=== PATIENT | female | born 1980 | race Caucasian/White ===

== ENCOUNTER 2017-04-27 22:57 | Emergency (ER) | payer BC, OTHER ==
--- NOTE | 2017-04-28 00:50 | ER Document Report ---
ED Medical Screen (RME) - General Chief Complaint: Vaginal Bleeding Stated Complaint: VAGINAL BLEEDING Time Seen by Provider: 04/28/17 00:42 Mode of Arrival: Ambulatory Information source: Patient Notes: -year-old female presents to ED for vaginal bleeding 3 weeks. She states she had a first until 3 weeks ago when she started bleeding again she states she went to [facility] Dr. Treadwell on Friday she said by then her bleeding had slowed down from and Dr. Treadwell put her on Tylenol with codeine and Benadryl. She states that on Friday the bleeding became much worse and then today around 2 PM she started with large clots and then around 10:00 tonight she started bleeding very heavily went to 5 pads between [id number] tonight. He states she has cramping in her abdomen and pelvis. Her ovaries selected twisted she has pelvic and back pain. I have greeted and performed a rapid initial assessment of this patient. A comprehensive ED assessment and evaluation of the patient, analysis of test results and completion of medical decision making process will be conducted by an additional ED providers. TRAVEL OUTSIDE OF THE [place] IN LAST 30 DAYS: No - Related Data Allergies/Adverse Reactions: No Known Allergies Allergy (Verified 04/27/17 23:45) Past Medical History Endocrine Medical History: Denies: Hx Diabetes Mellitus Type 2 Renal/ Medical History: Denies: Hx Peritoneal Dialysis Psychiatric Medical History: Reports: Hx Depression Past Surgical History: Reports: Hx Section, Hx Cholecystectomy, Hx Dilation and Curettage, Hx Tonsillectomy Physical Exam - Vital signs Vitals: Temp Pulse Resp BP Pulse Ox 98.7 F 115 H 20 150/75 H 98 04/27/17 23:42 04/27/17 23:42 04/27/17 23:42 04/27/17 23:42 04/27/17 23:42 Course - Vital Signs Vital signs: Temp Pulse Resp BP Pulse Ox 98.7 F 115 H 20 150/75 H 98 04/27/17 23:42 04/27/17 23:42 04/27/17 23:42 04/27/17 23:42 04/27/17 23:42
--- NOTE | 2017-04-28 01:05 | ER Document Report ---
ED General - General Chief Complaint: Vaginal Bleeding Stated Complaint: VAGINAL BLEEDING Time Seen by Provider: 04/28/17 00:42 Mode of Arrival: Ambulatory Notes: Patient is a 36-year-old female who presents with complaint of heavy vaginal bleeding. Patient says this been ongoing for 3 weeks. She says started to taper off and then became very heavy again today. She is passing large amount of clots. Some intermittent discharge. She has not checked a test in over a month and a half. She saw Dr. Marie, in room dining server, last week that she did a pelvic exam. She arrange for an ultrasound this coming week. She did have some heavy bleeding in the past but it usually only last 3-4 days. This never lasted this long. She has previous history of had some infection afterwards. was 13 years ago. TRAVEL OUTSIDE OF THE [place] IN LAST 30 DAYS: No - Related Data Allergies/Adverse Reactions: morphine Allergy (Verified 04/28/17 01:18) Past Medical History - General Information source: Patient - Social History Smoking Status: Unknown if Ever Smoked Frequency of alcohol use: None Drug Abuse: None Family History: Reviewed & Not Pertinent Endocrine Medical History: Denies: Hx Diabetes Mellitus Type 2 Renal/ Medical History: Denies: Hx Peritoneal Dialysis Psychiatric Medical History: Reports: Hx Depression Past Surgical History: Reports: Hx Section, Hx Cholecystectomy, Hx Dilation and Curettage, Hx Tonsillectomy Review of Systems - Review of Systems Notes: My Normal Review Basic REVIEW OF SYSTEMS: CONSTITUTIONAL : Denies fever, chills, or sweats. Denies recent illness. RESPIRATORY: Denies cough, cold, or chest congestion. Denies shortness of breath, difficulty breathing, or wheezing. GASTROINTESTINAL: Right-sided pelvic pain. Denies nausea, vomiting, or diarrhea. Denies constipation. Last BM: GENITOURINARY: Denies difficulty urinating, painful urination, burning, frequency, or blood in urine. FEMALE GENITOURINARY: Heavy vaginal bleeding. Pelvic pain. MUSCULOSKELETAL: Denies neck or back pain or joint pain or swelling. SKIN: Denies rash or skin lesions. NEUROLOGICAL: Denies altered mental status or loss of consciousness. Denies headache. Denies weakness or paralysis or loss of use of either side. Denies problems with gait or speech. Denies sensory or motor loss. ALL OTHER SYSTEMS REVIEWED AND NEGATIVE. Physical Exam - Vital signs Vitals: Temp Pulse Resp BP Pulse Ox 98.7 F 115 H 20 150/75 H 98 04/27/17 23:42 04/27/17 23:42 04/27/17 23:42 04/27/17 23:42 04/27/17 23:42 - Notes Notes: General Appearance: Well nourished, alert, cooperative, no acute distress, moderate obvious discomfort. Vitals: reviewed, See vital signs table. Head: no swelling or tenderness to the head Eyes: PERRL, EOMI, Conjuctiva clear Mouth: No decreasd moisture Lungs: No wheezing, No rales, No rhonci, No accessory muscle use, good air exchange bilaterally. Heart: Normal rate, Regular rythm, No murmur, no rub Abdomen: Normal BS, soft, No rigidity, pain to palpation over the pelvis is worse in the right side. Remainder of abdomen is nontender except for some very mild right upper quadrant abdominal tenderness to palpation., No guarding, no rebound, no abdominal masses, no organomegaly. Pelvic: Smal clots in vaginal vault. No vaginal lac seen Extremities: strength 5/5 in all extremities, good pulses in all extremities, no swelling or tenderness in the extremities, no edema. Skin: warm, dry, appropriate color, no rash Neuro: speech clear, oriented x 3, normal affect, responds appropriately to questions. Course - Vital Signs Vital signs: Temp Pulse Resp BP Pulse Ox 98.7 F 115 H 20 150/75 H 98 04/27/17 23:42 04/27/17 23:42 04/27/17 23:42 04/27/17 23:42 04/27/17 23:42 - Laboratory Result Diagrams: 04/28/17 00:45 04/28/17 00:45 Laboratory results interpreted by me: 04/28/17 04/28/17 00:45 00:50 AST 106 H ALT 110 H Urine Blood LARGE H Discharge - Discharge Clinical Impression: Dysmenorrhea Condition: Good Disposition: HOME, SELF-CARE Instructions: Oral Narcotic Medication ([facility]) Additional Instructions: [facility] to inform them that you had worsening bleeding and had to come to the ER. Please tell them that the ER doctor spoke with Dr. Acosta who requested you get followed up in the office early this week. Please return to the ER immediately if you have worsening pain, heavy bleeding, or feel unwell. Prescriptions: Tramadol HCl [Ultram 50 mg Tablet] 50 mg PO Q6HP PRN #20 tablet PRN Reason: Tranexamic Acid 1,300 mg PO TID #24 tablet Forms: Special Work Note, Return to Work Referrals: GETACHEW MARIE MD [ACTIVE STAFF] - Follow up tomorrow
[2017-04-28 01:16] LABS: ABSOLUTE BASOPHILS # (AUTO) 0.1 10^3/uL (0.0-0.2); ABSOLUTE EOSINOPHILS # (AUTO) 0.2 10^3/uL (0.0-0.6); ABSOLUTE LYMPHOCYTES (AUTO) 2.8 10^3/uL (0.5-4.7); ABSOLUTE MONOCYTES (AUTO) 0.6 10^3/uL (0.1-1.4); ABSOLUTE NEUT (AUTO) 5.5 10^3/uL (1.7-8.2); BASOPHILS % (AUTO) 0.8 % (0-2); EOSINOPHILS % (AUTO) 1.9 % (0-6); HEMATOCRIT 37.6 % (36.0-47.0); HEMOGLOBIN 12.9 g/dL (12.0-15.5); HGB HCT DIFFERENCE 1.1; LYMPHOCYTES % (AUTO) 30.4 % (13-45); MEAN CORPUSCULAR HEMOGLOBIN 28.4 pg (27.0-33.4); MEAN CORPUSCULAR HGB CONC 34.2 g/dL (32.0-36.0); MEAN CORPUSCULAR VOLUME 83 fl (80-97); MONOCYTES % (AUTO) 6.8 % (3-13); RED BLOOD COUNT 4.53 10^6/uL (3.72-5.28); RED CELL DISTRIBUTION WIDTH 13.5 % (11.5-14.0); SEGMENTED NEUTROPHILS % (AUTO) 60.1 % (42-78); WHITE BLOOD COUNT 9.2 10^3/uL (4.0-10.5)
[2017-04-28 01:17] LABS: APPEARANCE,URINE SLIGHTLY-CLOUDY; BILIRUBIN,URINE NEGATIVE (NEGATIVE); GLUCOSE, URINE NEGATIVE (NEGATIVE); KETONES,URINE NEGATIVE (NEGATIVE); LEUKOCYTE ESTERASE,URINE NEGATIVE (NEGATIVE); NITRITE,URINE NEGATIVE (NEGATIVE); PROTEIN,URINE NEGATIVE (NEGATIVE); URINE SPECIFIC GRAVITY 1.009; UROBILINOGEN,URINE NEGATIVE mg/dL (<2.0)
[2017-04-28 01:29] LABS: ALANINE AMINOTRANSFERASE 110 U/L (9-52); ALBUMIN 4.4 g/dL (3.5-5.0); ALKALINE PHOSPHATASE 88 U/L (38-126); ANION GAP 13 (5-19); ASPARTATE AMINO TRANSFERASE 106 U/L (14-36); BILIRUBIN,DIRECT 0.3 mg/dL (0.0-0.4); BILIRUBIN,TOTAL 0.3 mg/dL (0.2-1.3); BLOOD UREA NITROGEN 10 mg/dL (7-20); CALCIUM 9.7 mg/dL (8.4-10.2); CARBON DIOXIDE 25 mmol/L (22-30); CHLORIDE 105 mmol/L (98-107); CREATININE RESULT 0.72 mg/dL (0.52-1.25); GLUCOSE 107 mg/dL (75-110); POTASSIUM 4.4 mmol/L (3.6-5.0); TOTAL PROTEIN 7.8 g/dL (6.3-8.2)
[2017-04-28] MEDS ORDERED: FENTANYL CITRATE INJ/PF 100 MCG/2 ML AMPUL IV ONE ×2 (01:33→03:27)
--- NOTE | 2017-04-28 03:17 | RADIOLOGY REPORT (SQ) ---
EXAM DESCRIPTION: U/S NON OB PEL TV W/DOPPLER COMPLETED DATE/TIME: 04/28/2017 2:26 am REASON FOR STUDY: vaginal bleed for 3 weeks worse last 3-4 hours COMPARISON: CT abdomen pelvis, 03/13/2016. At TECHNIQUE: Dynamic and static grayscale images acquired of the pelvis via transvaginal approach and recorded on PACS. Additional selected color Doppler and spectral images recorded. LIMITATIONS: None. FINDINGS: UTERUS: Contour normal. No mass. Intramural posterior uterine cyst and/or nabothian cyst , likely congenital measuring up to 0.7 cm ; possibly additional smaller cysts. ENDOMETRIAL STRIPE: No focal or generalized thickening. No masses. CERVIX: Nabothian cysts. 3.6 x 1.7 x 2.8 cm complex heterogeneous avascular component of the uterus, nonspecific. RIGHT OVARY: No abnormal masses. 2.5 cm cystic component within normal limits. RIGHT OVARY DOPPLER: Normal arterial vascular flow without evidence for torsion. LEFT OVARY: No abnormal masses. 2.8 cm cystic component within normal limits. LEFT OVARY DOPPLER: Normal arterial vascular flow without evidence for torsion. FREE FLUID: None noted. OTHER: No other significant finding. MEASUREMENTS: UTERUS: 8.2 x 4 x 4 cm. ENDOMETRIAL STRIPE: 0.3- 0.6 cm. RIGHT OVARY: 3.8 cm. LEFT OVARY: 3.6 cm. IMPRESSION: 3.6 cm complex a avascular collection at the cervical canal may indicate clot and/or aty pical cervicitis. Consider RETAIL SALESPERSON consultation and/or ultrasound surveillance in 6-8 weeks. TECHNICAL DOCUMENTATION: JOB ID: [id number] [employer]- All Rights Reserved
[2017-04-28] MEDS ORDERED: TRANEXAMIC ACID INJ/PF 1,000 MG/10 ML SDV IV ONE ×2 (03:30→03:42)
[2017-04-28 04:37] VITALS: BP 122/64
== END 2017-04-28 04:46 | disposition home or self-care (01) ==
LOC: ER 22:57
DX: N94.6 Dysmenorrhea, unspecified (principal); N92.0 Excessive and frequent menstruation with regular cycle; R10.2 Pelvic and perineal pain; N89.8 Other specified noninflammatory disorders of vagina; Z88.5 Allergy status to narcotic agent
CPT/HCPCS: 96376; 99284; 96374; 96375; 86900; 86901; 36415; 86850; 84703; 85025; 80053; 81001; 76830; 93976; J3010; J3490

== ENCOUNTER 2017-05-29 09:10 | Day surgery (SDC) | payer BC ==
[2017-05-21 12:48] LABS: HEMATOCRIT 37.7 % (36.0-47.0); HEMOGLOBIN 12.5 g/dL (12.0-15.5); HGB HCT DIFFERENCE -0.2; MEAN CORPUSCULAR HEMOGLOBIN 27.4 pg (27.0-33.4); MEAN CORPUSCULAR VOLUME 83 fl (80-97); RED BLOOD COUNT 4.55 10^6/uL (3.72-5.28); RED CELL DISTRIBUTION WIDTH 13.4 % (11.5-14.0); WHITE BLOOD COUNT 11.8 10^3/uL (4.0-10.5)
[2017-05-21 15:04] LABS: APPEARANCE,URINE SLIGHTLY-CLOUDY; BILIRUBIN,URINE NEGATIVE (NEGATIVE); GLUCOSE, URINE NEGATIVE (NEGATIVE); KETONES,URINE NEGATIVE (NEGATIVE); LEUKOCYTE ESTERASE,URINE NEGATIVE (NEGATIVE); NITRITE,URINE NEGATIVE (NEGATIVE); PROTEIN,URINE NEGATIVE (NEGATIVE); URINE SPECIFIC GRAVITY 1.017; UROBILINOGEN,URINE NEGATIVE mg/dL (<2.0)
[~2017-05-29 09:10] MED LIST: CEFAZOLIN 2 GM/D5W RTU 2 GM/50 ML RTUPB IV PRN; LACTATED RINGERS 1000 ML IV PRN; LIDOCAINE 0.5% INJ-PF (5 MG/ML) 50 ML SDV SUBCUT PRN
[2017-05-29] MEDS ORDERED: BUPIVACAINE HCL 0.25 % INJ/PF (2.5 MG/1 ML) 30 ML VIAL ONE (10:57)
[2017-05-29] MEDS ORDERED: BUPIVACAINE HCL 0.5%-EPI 1:200000 INJ/PF 30 ML VIAL ONE (10:58)
[2017-05-29] MEDS ORDERED: FAMOTIDINE INJ/PF 20 MG/2 ML SDV IV ONE (11:23)
[2017-05-29] MEDS ORDERED: SCOPOLAMINE HYDROBROMIDE 1.5 MG PATCH.TD72 ONE (11:31)
[2017-05-29] MEDS ORDERED: SCOPOLAMINE HYDROBROMIDE 1.5 MG PATCH.TD72 TD ONE (12:00)
[2017-05-29] MEDS ORDERED: FENTANYL CITRATE INJ/PF 250 MCG/5 ML AMPULE ONE (12:05)
[2017-05-29] MEDS ORDERED: LIDOCAINE 2% INJ-PF (20 MG/ML) 10 ML AMPUL ONE (12:05)
[2017-05-29] MEDS ORDERED: KETOROLAC TROMETHAMINE 60 MG/2 ML SDV ONE (12:05)
[2017-05-29] MEDS ORDERED: ONDANSETRON HCL INJ/PF 4 MG/2 ML SDV ONE (12:06)
[2017-05-29] MEDS ORDERED: DEXAMETHASONE SOD PHOSPHATE INJ 4 MG/1 ML VIAL ONE (12:06)
[2017-05-29] MEDS ORDERED: MIDAZOLAM 2 MG/2 ML INJ ONE (12:06)
[2017-05-29] MEDS ORDERED: PROPOFOL INJ 200 MG/20 ML VIAL IV ONE (12:07)
[2017-05-29] MEDS ORDERED: ACETAMINOPHEN 100 ML IV ONE (12:07)
[2017-05-29] MEDS ORDERED: LIDOCAINE 1% INJ-PF (10 MG/ML) 30 ML SDV ONE (12:30)
[2017-05-29] MEDS ORDERED: OXYCODONE-ACETAMINOPHEN 5-325 MG TABLET PO PRN ×4 (12:59→15:13)
[2017-05-29] MEDS ORDERED: PROMETHAZINE HCL INJ 25 MG/1 ML VIAL IV PRN ×2 (12:59)
[2017-05-29] MEDS ORDERED: ONDANSETRON HCL INJ/PF 4 MG/2 ML SDV IV PRN ×2 (12:59→15:16)
[2017-05-29] MEDS ORDERED: DIPHENHYDRAMINE HCL 50 MG/ML VIAL IV PRN (12:59)
[2017-05-29] MEDS ORDERED: MEPERIDINE HCL/PF INJ 25 MG/1 ML DISP.SYRIN IV PRN (12:59)
[2017-05-29] MEDS ORDERED: FENTANYL CITRATE INJ/PF 100 MCG/2 ML AMPUL IV PRN ×3 (12:59)
[2017-05-29] MEDS ORDERED: HYDROMORPHONE HCL INJ/PF 2 MG/ML AMPULE ONE (13:30)
[2017-05-29] MEDS ORDERED: HYDROMORPHONE HCL INJ/PF 2 MG/ML AMPULE IV PRN (15:11)
[2017-05-29] MEDS ORDERED: IBUPROFEN 800 MG TABLET PO PRN (15:12)
[2017-05-29] MEDS ORDERED: DIPHENHYDRAMINE HCL 50 MG/ML VIAL ONE (15:14)
[2017-05-29] MEDS ORDERED: ONDANSETRON 4 MG TAB.RAPDIS PO PRN (15:16)
[2017-05-29] MEDS ORDERED: IBUPROFEN INJ 800 MG/8 ML VIAL IV ONE (15:24)
[2017-05-29] MEDS ORDERED: IBUPROFEN 800 MG in NORMAL SALINE 250 ML IV ONE (16:00)
[2017-05-29] MEDS ORDERED: METOCLOPRAMIDE HCL INJ/PF 10 MG/2 ML SDV ONE (16:11)
[2017-05-29] MEDS ORDERED: SUCCINYLCHOLINE CHLORIDE INJ 200 MG/10 ML VIAL ONE (16:53)
[2017-05-29 18:09] VITALS: BP 123/70
--- NOTE | 2017-06-12 09:01 | Operative Report ---
Operative Report DATE OF SURGERY: 05/29/17 PREOPERATIVE DIAGNOSIS: Dysfunctional Uterine Bleeding, Pelvic Pain POSTOPERATIVE DIAGNOSIS: NADIA - Pelvic Adhesive Disease, Endometriosis OPERATION: Operative Laparoscopy with Lysis of Adhesions, Right Salpingo- ophorectomy, D&C SURGEON: GETACHEW MARIE ANESTHESIA: GA TISSUE REMOVED OR ALTERED: Right tube and ovary, endometrial currettings COMPLICATIONS: unable to pass hysteroscope ESTIMATED BLOOD LOSS: 25ml INTRAOPERATIVE FINDINGS: Poor descent of uterus into vagina - unlikely to be able to complete vaginal hysterectomy in future, Diffuse endometriosis with sheets of endometriosis and adhesions posterior to the uterus, Left side of uterus adhered to left pelvic sidewall, right ovary with multiple large cysts ( simple fluid filled), Right fallopian tube clubbed and scarred to right ovary, left ovary appears normal but left tube enlarged and inflammed and possibly blunted PROCEDURE: IVF: [2000ml] UOP: 700ml Indications: [36yo with persistent right ovarian cyst and menorrhagia. Non diagnostic endometrial biopsy in the office due to severity of menorrhagia. Not currently anemic. She continues to desire future fertility at this time. The risks, benefits, alternatives to the procedure were reviewed and the patient desires to proceed with planned procedure. ] Procedure: The patient was taken to the Operating Room where general anesthesia was obtained without difficulty. She was prepped and draped in the normal sterile fashion in the dorsal lithotomy position. Exam under anesthesia was performed and noted above. A speculum was placed in the vagina. The anterior cervix was grasped with a single-tooth tenaculum and the uterus sounded to 8 cm. Sequential dilators were then used to dilate the cervix to accommodate the hysteroscope but hysteroscope would not pass through the cervix easily. This was abandoned and endometrial currettage performed with sharp currettage instrument with good return of tissue. A [employer] uterine manipulator was then advanced into the uterus to provide a means of manipulation of the uterus. The speculum and tenaculum were then removed from the patient's cervix and vagina. Attention was then turned to the patient's abdomen where a 5 mm infraumbilical skin incision was then made. The Optiview trocar with 0 laparoscope was then advanced without difficulty under direct visualization with the Optiview trocar. This was performed while tenting the abdominal wall and these will fashion. Intraperitoneal placement was confirmed by the direct visualization. Pneumoperitoneum was then obtained with approximately 4 L carbon dioxide gas. Survey of the patient's abdomen and pelvis revealed findings as noted above. A second skin incision was then made approximately 3 cm superior 4 cm medial to the anterior superior iliac spine on the left and then a third skin incision was made approximately 3 cm superior to the lower incision. These incisions were made under direct visualization with the laparoscope. The second and third trochars were then advanced under direct visualization of the laparoscope at the sites. The right fallopian tube was then identified and followed out to the fimbriated end and attempt was made to perform rigth ovarian cystectomy. However the multiple cysts encompassed the majority of the ovary and for hemostasis the decision was made to removed the ovary on the right. Dr. cohen asked to come look at pelvis and agreed that right fallopian tube apperared very damaged and decision was made to remove the right fallopian tube. The LigaSure device was used to clamp and cauterize and cut the mesosalpinx extending from the fimbriated end to the cornua of the uterus thus removing the right fallopian tube and the right ovary in its entirety. The right ovary was noted to be normal and vasculature remained intact to this ovary. Attention was then turned to the left adnexa which was visualized after some manipulation due to adhesions of the left body of the uterus to the left sidewall. The left ovary appeared normal but the left may also be blunted. Adhesiolysis was performed of the sheets of adhesions of endometriosis on the posterior uterus. There was mastersons windows noted in the posterior cul de sac. The right fallopian tube and ovary were then removed with the aid of an endopouch. All operative sites were visualized and noted to be hemostatic. The 2 additional trochars on the patient's left greater than removed under direct visualization. The 10 mm trocar was then removed after abdominal insufflation was removed. The fascia at the 10 mm trocar site was closed with 0 Vicryl on a UR 6 needle. The skin at all trocar sites were closed with 3-0 Monocryl in a subcuticular fashion with overlying Dermabond. 2 grams of Ancef were given for this procedure. After completion of skin closure of the trocar sites attention was then turned to the vagina where the [employer] uterine manipulator was removed and the bivalve speculum was replaced. Silver nitrate was applied to the tenaculum sites for hemostasis and the speculum was removed. Sponge lap needle and instrument counts were correct 3. The patient tolerated the procedure well and was taken to the recovery area awake and in stable condition.
== END 2017-05-29 18:05 | disposition home or self-care (01) ==
LOC: OROUT 09:10
PROVIDERS: ATTEND Student in an Organized Health Care Education/Training Program
PROC: 0UDB7ZX Extraction of Endometrium, Via Natural or Artificial Opening, Diagnostic (ICD-10-PCS; 2017-05-29)
PROC: 0UT04ZZ Resection of Right Ovary, Percutaneous Endoscopic Approach (ICD-10-PCS; principal; 2017-05-29 11:30)
PROC: 0UT54ZZ Resection of Right Fallopian Tube, Percutaneous Endoscopic Approach (ICD-10-PCS; 2017-05-29 11:30)
DX: N93.8 Other specified abnormal uterine and vaginal bleeding (principal); N73.6 Female pelvic peritoneal adhesions (postinfective); N83.11 Corpus luteum cyst of right ovary; N83.01 Follicular cyst of right ovary; N80.0 Endometriosis of uterus; N83.291 Other ovarian cyst, right side; R10.2 Pelvic and perineal pain; R01.1 Cardiac murmur, unspecified; Z12.4 Encounter for screening for malignant neoplasm of cervix; Z79.899 Other long term (current) drug therapy; Z87.891 Personal history of nicotine dependence
CPT/HCPCS: 36415; 85027; 81005; 81025; 81001; 88305 ×2; 58661; 58120; J2250; J1100; J1200; J3010; J3490 ×2; J2765; J1170; J0330; J2405; J2704; S0028; J0690; J0131; J1741; 840; J1885

== ENCOUNTER 2018-03-26 05:35 | Day surgery (SDC) | payer BC, OTHER ==
[2018-03-18 12:35] LABS: APPEARANCE,URINE CLEAR; BILIRUBIN,URINE NEGATIVE (NEGATIVE); COLOR,URINE YELLOW; GLUCOSE, URINE NEGATIVE (NEGATIVE); KETONES,URINE NEGATIVE (NEGATIVE); LEUKOCYTE ESTERASE,URINE NEGATIVE (NEGATIVE); NITRITE,URINE NEGATIVE (NEGATIVE); PROTEIN,URINE NEGATIVE (NEGATIVE); URINE SPECIFIC GRAVITY 1.009; UROBILINOGEN,URINE NEGATIVE mg/dL (<2.0)
[2018-03-18 13:52] LABS: HEMATOCRIT 36.5 % (36.0-47.0); HEMOGLOBIN 12.8 g/dL (12.0-15.5); MEAN CORPUSCULAR VOLUME 80 fl (80-97); PLATELET COUNT 286 10^3/uL (150-450); RED BLOOD COUNT 4.56 10^6/uL (3.72-5.28); RED CELL DISTRIBUTION WIDTH 13.3 % (11.5-14.0)
[2018-03-18 14:26] LABS: ALANINE AMINOTRANSFERASE 54 U/L (9-52); ALKALINE PHOSPHATASE 85 U/L (38-126); ANION GAP 13 (5-19); ASPARTATE AMINO TRANSFERASE 46 U/L (14-36); BILIRUBIN,DIRECT 0.2 mg/dL (0.0-0.4); BILIRUBIN,TOTAL 0.2 mg/dL (0.2-1.3); BLOOD UREA NITROGEN 10 mg/dL (7-20); CALCIUM 9.7 mg/dL (8.4-10.2); CARBON DIOXIDE 27 mmol/L (22-30); CHLORIDE 106 mmol/L (98-107); GLUCOSE 88 mg/dL (75-110); TOTAL PROTEIN 7.4 g/dL (6.3-8.2)
--- NOTE | 2018-03-18 22:26 | EKG REPORT ---
SEVERITY:- BORDERLINE ECG - SINUS RHYTHM BORDERLINE LEFT AXIS DEVIATION INFERIOR Q WAVES, PROBABLY NORMAL VARIATION : Confirmed by: Jordan Angulo 18-Mar-2018 22:25:44
[~2018-03-26 05:35] MED LIST changes: +CEFAZOLIN 1 GM/D5W RTU 1 GM/50 ML RTUPB IV PRN; -CEFAZOLIN 2 GM/D5W RTU 2 GM/50 ML RTUPB IV PRN
[2018-03-26] MEDS ORDERED: FENTANYL CITRATE INJ/PF 100 MCG/2 ML AMPUL ONE ×2 (06:38→06:39)
[2018-03-26] MEDS ORDERED: PROPOFOL INJ 200 MG/20 ML VIAL IV ONE (06:39)
[2018-03-26] MEDS ORDERED: MIDAZOLAM 2 MG/2 ML INJ ONE (06:39)
[2018-03-26] MEDS ORDERED: ACETAMINOPHEN 1,000 MG/100 ML RTUPB IV ONE ×2 (06:40→07:02)
[2018-03-26] MEDS ORDERED: HYDROMORPHONE HCL INJ/PF 2 MG/ML AMPULE ONE ×2 (06:40→15:59)
[2018-03-26] MEDS ORDERED: SCOPOLAMINE HYDROBROMIDE 1.5 MG PATCH.TD72 ONE (07:12)
[2018-03-26] MEDS ORDERED: FAMOTIDINE INJ/PF 20 MG/2 ML SDV IV ONE (07:12)
[2018-03-26] MEDS ORDERED: DIPHENHYDRAMINE HCL 50 MG/ML VIAL IV PRN (08:55)
[2018-03-26] MEDS ORDERED: FENTANYL CITRATE INJ/PF 100 MCG/2 ML AMPUL IV PRN ×3 (08:55)
[2018-03-26] MEDS ORDERED: PROMETHAZINE HCL INJ 25 MG/1 ML VIAL IV PRN (08:55)
[2018-03-26] MEDS: FENTANYL CITRATE INJ/PF 100 MCG/2 ML AMPUL ONE ×2 (11:00→11:10)
[2018-03-26] MEDS ORDERED: KETOROLAC TROMETHAMINE INJ/PF 30 MG/1 ML SDV ONE (11:02)
--- NOTE | 2018-03-26 11:40 | OPERATIVE REPORT E ---
Operative Report NAME: RAVI MORA : 1980 AGE: 37Y DATE OF SURGERY: 03/26/2018 ROOM: PREOPERATIVE DIAGNOSES: 1. Abnormal uterine bleeding. 2. Chronic pelvic pain. 3. Endometriosis. POSTOPERATIVE DIAGNOSES: 1. Abnormal uterine bleeding. 2. Chronic pelvic pain. 3. Endometriosis. SURGEON: CAITLIN RICE MD ANESTHESIOLOGIST: JOSE KWONG MD ANESTHESIA: General. FINDINGS: A [id number] uterus. Absent right ovary and partial fallopian tube. Left ovary and fallopian tube with signs of endometriosis with multiple blisters, especially on the ovary. Blisters and gunpowder lesions on the left uterosacral ligament. COMPLICATIONS: Double closure of the vaginal cuff to obtain hemostasis. ESTIMATED BLOOD LOSS: 700 mL. SPECIMENS REMOVED: Uterus, cervix, and left fallopian tube and ovary. PROCEDURE: Robotic-assisted total laparoscopic hysterectomy with left salpingo-oophorectomy, partial right salpingectomy, lysis of adhesion and fulguration of endometriosis. PROCEDURE IN DETAIL: The patient was taken to the operating room, prepared and draped in a normal sterile fashion in the dorsal lithotomy position. Under sterile conditions, a Lacy catheter was placed to gravity. A sterile speculum was then placed into the vagina and the cervix was grasped with a single-tooth tenaculum on the anterior lip. The cervix was noted to be severely deviated posteriorly. The cervix was well prepped with Betadine and the cervix was then dilated to accommodate a medium VCare uterine manipulator, which was placed with some difficulty, but with some manipulation, was felt to be in the correct place. The gloves were changed and attention was then turned to the upper portion of the case, where a skin incision was made just above the umbilicus following the patient's previous laparoscopic scar. This skin incision was carried through to the underlying layer of fascia. The fascia was grasped with 2 Kochers and the fascia was entered sharply with Matthews scissors and extended with Mayos. The peritoneal cavity was entered bluntly with surgeon finger fracture and again, the fascia was extended to accommodate the GelPort, which was placed without difficulty. Once the GelPort was placed, a uterine morcellation bag was placed into the right pericolic gutter. The GelPort was placed with the camera port and the air seal port within the gel and the abdomen was insufflated with approximately 2 L of CO2 gas. The camera was then introduced through the camera port and the patient was placed in steep Trendelenburg with the above findings noted. Under direct visualization, the trocars were placed approximately 10 cm on either side of the umbilicus to accommodate the robotic arms. The robot was then docked and then monopolar scissors were placed on the right and a vessel sealer was placed on the left. The bowel was manipulated away using the blunt probe. I then un-scrubbed and sat at the console, where, beginning with the right adnexa, I noted that there was a part of the fallopian tube that was previously left and this was ligated with using the vessel sealer as well as the monopolar scissors as needed and this was removed through the assistance port. The utero-ovarian ligament was then ligated using the vessel sealer and the rest of the uterine artery continued to be ligated using the vessel sealer down to the level of the internal os. The VCare was noted to have perforated into the broad ligament and this was then readjusted to place more firmly into the uterine cavity and this was done by my assist, Veronica Craig. Once this was completed, continued to ligate the uterine artery down to the level of the internal cervical os. I then switched to the left adnexa and again ligated some mild adhesions of the large intestine to the pelvic sidewall in order to be able to adequately locate the infundibulopelvic ligament. Once this was located, I began ligation of the infundibulopelvic ligament as close to the ovary as possible and continued ligation of this with the vessel sealer until the ovary was completely freed. I then began ligation of the round ligament, following the contours of the uterus using the vessel sealer and continued to ligate the rest of the uterine artery down to the level of the internal cervical os. I then performed the bladder flap using the monopolar scissors and blunt dissection. I adequately dissected the bladder away from the lower uterine segment. It was noted then that the cup could not really be located easily through the mucosa and we felt that this was due to the readjustment from the perforation. Therefore, we readjusted, once more, the VCare and actually purposefully perforated through the uterus at the fundus in order to be able to continue to locate the cup through the mucosa. This was completed with good hemostasis and the cup was more readily locatable through the mucosa. The rest of the uterine artery was then completely ligated and the colporrhaphy was begun on the anterior aspect of the uterus using the monopolar scissors and cauterizing in a circumferential fashion all the way around until the specimen was completely freed. The specimen was then placed into the posterior cul-de-sac and the arms were changed to a Stephan needle motor coach bus driver and a ProGrasp. The V-Loc needle was then introduced through the assistance port and the V-Loc was used to close the vaginal cuff. Hemostasis was not obtained with this closure of the V-Loc. I replaced the arms with the monopolar scissors and the vessel sealer in order to try to coagulate adequately for hemostasis, but this was not found to be fruitful, so we did once again place the needle motor coach bus driver and the ProGrasp and used a second V-Loc suture to overstitch the previous vaginal cuff closure and this proved to be fruitful for hemostasis. The suture was ligated using Endo David and this was removed through the assistance port. The morcellation bag was then located and brought to the posterior cul-de-sac. The specimen was located and placed in the morcellation bag. I then re-scrubbed and the robot was undocked, removed the GelPort gel and was able to locate the morcellation bag and bring this up through the GelPort. We grasped the specimen and were preparing for morcellation; however, the specimen was small enough to come through the incision and it did so within the bag. The bag was then removed. The GelPort was completely removed. The fascia was closed at the umbilical skin incision using 0-Vicryl. The skin was closed with 4-0 Vicryl at all 3 sites. The patient tolerated the procedure well. Sponge, lap, and needle counts were correct x2, and the Lacy catheter was removed at the end of the case. DICTATING PHYSICIAN: CAITLIN RICE M.D. [id number] PHY#: [id number] ID: [id number] JOB#: [id number] ACCT: [id number] cc:CAITLIN RICE M.D. >
[2018-03-26] MEDS ORDERED: METOCLOPRAMIDE HCL INJ/PF 10 MG/2 ML SDV ONE (11:56)
[2018-03-26] MEDS ORDERED: PROMETHAZINE HCL INJ 25 MG/1 ML VIAL ONE (12:07)
[2018-03-26] MEDS ORDERED: RINGERS SOLUTION,LACTATED 500 ML IV ONE (12:45)
[2018-03-26] MEDS ORDERED: HYDROMORPHONE HCL INJ/PF 2 MG/ML AMPULE IV PRN (15:54)
[2018-03-26] MEDS ORDERED: IBUPROFEN 800 MG TABLET PO PRN (15:58)
[2018-03-26] MEDS: KETOROLAC TROMETHAMINE INJ/PF 30 MG/1 ML SDV IV SCH (18:15)
[2018-03-26] MEDS: ACETAMINOPHEN 1,000 MG/100 ML RTUPB IV SCH (18:46)
[2018-03-26] MEDS ORDERED: NEOSTIGMINE METHYLSULFATE 10 MG/10 ML VIAL ONE (20:19)
[2018-03-26] MEDS ORDERED: DEXAMETHASONE SOD PHOSPHATE INJ 4 MG/1 ML VIAL ONE (20:19)
[2018-03-26] MEDS ORDERED: GLYCOPYRROLATE INJ 0.4 MG/2 ML VIAL ONE (20:19)
[2018-03-26] MEDS ORDERED: ONDANSETRON HCL INJ/PF 4 MG/2 ML SDV ONE (20:19)
[2018-03-26] MEDS ORDERED: SUCCINYLCHOLINE CHLORIDE INJ 200 MG/10 ML VIAL ONE (20:19)
[2018-03-26] MEDS: DIPHENHYDRAMINE HCL 50 MG CAPSULE PO PRN (21:44)
[2018-03-26] MEDS: OXYCODONE-ACETAMINOPHEN 5-325 MG TABLET PO PRN (21:44)
[2018-03-27] MEDS: ACETAMINOPHEN 1,000 MG/100 ML RTUPB IV SCH ×2 (01:57→10:31)
[2018-03-27] MEDS: KETOROLAC TROMETHAMINE INJ/PF 30 MG/1 ML SDV IV SCH (01:58)
[2018-03-27 05:19] LABS: HEMATOCRIT 28.4 % (36.0-47.0); HEMOGLOBIN 9.7 g/dL (12.0-15.5); MEAN CORPUSCULAR HEMOGLOBIN 27.4 pg (27.0-33.4); MEAN CORPUSCULAR HGB CONC 34.1 g/dL (32.0-36.0); MEAN CORPUSCULAR VOLUME 80 fl (80-97); PLATELET COUNT 250 10^3/uL (150-450); RED BLOOD COUNT 3.54 10^6/uL (3.72-5.28); RED CELL DISTRIBUTION WIDTH 13.5 % (11.5-14.0); WHITE BLOOD COUNT 12.7 10^3/uL (4.0-10.5)
--- NOTE | 2018-03-27 07:57 | PDOC DISCHARGE SUMMARY ---
General - Admit/Disc Date/PCP Admission Date/Primary Care Provider: DANIEL GTZ Discharge Date: 03/27/18 - Discharge Diagnosis (1) Chronic pelvic pain in female Is this a current diagnosis for this admission?: Yes (2) Abnormal uterine bleeding Is this a current diagnosis for this admission?: Yes (3) Abdominal pain Is this a current diagnosis for this admission?: Yes (4) Endometriosis determined by laparoscopy Is this a current diagnosis for this admission?: Yes - Additional Information Home Medications: Cetirizine HCl [Zyrtec 10 mg Tablet] 1 tab PO DAILY 03/13/16 Acetaminophen [Tylenol] 1,000 mg PO PRN PRN 03/18/18 Diazepam [Valium 5 mg Tablet] 2.5 mg PO BID PRN 03/18/18 Diphenhydramine HCl [Benadryl] 25 mg PO PRN PRN 03/18/18 Ibuprofen 800 mg PO PRN PRN 03/18/18 Naproxen Sodium [Aleve] 220 mg PO PRN PRN 03/18/18 Oxycodone HCl/Acetaminophen [Percocet 5-325 mg Tablet] 1 tab PO PRN PRN History of Present Illness History of Present Illness: RAVI MORA is a 37 year old female who underwent a RATLH w/ LSO done for endometriosis. unremarkable post op course. Physical Exam - Physical Exam Vital Signs: Temp Pulse Resp BP Pulse Ox 98.1 F 100 18 124/62 96 03/27/18 03:18 03/27/18 03:18 03/27/18 03:18 03/27/18 03:18 03/27/18 03:18 Intake & Output 03/26/18 03/27/18 03/28/18 06:59 06:59 06:59 Intake Total 0 4250 Output Total 3690 Balance 0 560 Weight 102.51 kg General appearance: PRESENT: no acute distress, cooperative GI/Abdominal exam: PRESENT: soft, tenderness - appropriate for post op period. incisions c/d/intact Result Laboratory Results: 03/27/18 05:06 03/18/18 12:46 03/27/18 05:06 WBC 12.7 H RBC 3.54 L Hgb 9.7 L Hct 28.4 L MCV 80 MCH 27.4 MCHC 34.1 RDW 13.5 Plt Count 250 Plan Discharge Plan: discharge home with scheduled f/u at [facility] with myself Time Spent: Less than 30 Minutes
[2018-03-27] MEDS: OXYCODONE-ACETAMINOPHEN 5-325 MG TABLET PO PRN (08:37)
[2018-03-27] MEDS: DIPHENHYDRAMINE HCL 50 MG CAPSULE PO PRN (08:38)
[2018-03-27 08:47] VITALS: BP 120/70
== END 2018-03-27 10:28 | disposition home or self-care (01) ==
LOC: OROUT 05:35 → 2S 12:45 → OROUT 03-27 10:28
PROVIDERS: ATTEND Obstetrics & Gynecology
PROC: 0UT94ZZ Resection of Uterus, Percutaneous Endoscopic Approach (ICD-10-PCS; principal; 2018-03-26 07:30)
DX: N93.8 Other specified abnormal uterine and vaginal bleeding (principal); N80.0 Endometriosis of uterus; N84.0 Polyp of corpus uteri; N83.02 Follicular cyst of left ovary; G89.29 Other chronic pain; R10.2 Pelvic and perineal pain; F41.9 Anxiety disorder, unspecified; R01.1 Cardiac murmur, unspecified; Z87.891 Personal history of nicotine dependence; Z79.899 Other long term (current) drug therapy; Z01.818 Encounter for other preprocedural examination; Z88.5 Allergy status to narcotic agent
CPT/HCPCS: 58571; 58662; S2900; 36415; 80053; 81001; 81025; 840; 85027; 86850; 86900; 86901; 88307; 93005; 93010; C1765; J0131; J0330; J0690; J1100; J1170; J1885; J2250; J2405; J2550; J2704; J2765; J3010; S0028